=== PATIENT | female | born 1965 | race Caucasian/White ===

== ENCOUNTER 2016-12-17 10:32 | Emergency (ER) | payer MEDICAID ==
[~2016-12-17] VITALS: Ht 152.4 cm; Wt 70.0 kg
[2016-12-17] MEDS ORDERED: SODIUM CHLORIDE 0.9% 1,000 ML IV ONE (11:12)
[2016-12-17] MEDS ORDERED: LORAZEPAM 0.5MG TABLET PO ONE (11:15)
[2016-12-17 11:27] LABS: BASOPHILS % 0.2 % (0.0-2.0); EOSINOPHILS % 0.3 % (0.0-5.0); HEMATOCRIT. 40.1 % (36.0-48.0); LYMPHOCYTES % 25.1 % (20.0-50.0); MEAN CORPUSCULAR HEMOGLOBIN 28.9 pg (28.0-32.0); MEAN CORPUSCULAR VOLUME 82.7 fL (81.0-99.0); MEAN PLATELET VOLUME 9.3 fl (7.4-10.4); MONOCYTES % 4.1 % (2.0-8.0); NEUTROPHILS % 70.3 % (40.0-76.0); PLATELET 223 x1000/uL (130-400); RED BLOOD CELL COUNT 4.85 mill/uL (4.2-5.4); RED CELL DISTRIBUTION WIDTH 12.8 % (11.6-14.6)
[2016-12-17 11:40] LABS: CARBON DIOXIDE 26 mEq/L (21-32); CHLORIDE 102 mEq/L (98-107)
[2016-12-17 11:47] LABS: TROPONIN I < 0.02 ng/mL (0.00-0.04)
[2016-12-17 12:13] VITALS: BP 122/74
== END 2016-12-17 12:47 | disposition home or self-care (01) ==
LOC: ER 11:30
DX: E11.65 Type 2 diabetes mellitus with hyperglycemia (principal); F41.9 Anxiety disorder, unspecified; I10 Essential (primary) hypertension
CPT/HCPCS: 36415; 80053; 82962; 84484; 85025; 93005; 99285; J7030; Z7610

== ENCOUNTER 2016-12-20 16:36 | Emergency (ER) | payer MEDICAID ==
[~2016-12-20] VITALS: Ht 162.6 cm; Wt 72.0 kg
[2016-12-20] MEDS ORDERED: KETOROLAC 60MG/2ML VIAL IM ONE (21:45)
[2016-12-20 23:28] VITALS: BP 122/86
== END 2016-12-20 23:30 | disposition home or self-care (01) ==
LOC: ER 21:45
DX: M25.562 Pain in left knee (principal); E11.9 Type 2 diabetes mellitus without complications; Z90.49 Acquired absence of other specified parts of digestive tract; Z98.890 Other specified postprocedural states; X50.1XXA Overexertion from prolonged static or awkward postures, initial encounter; Y93.89 Activity, other specified; Y92.89 Other specified places as the place of occurrence of the external cause
CPT/HCPCS: 73562; 96372; 99284; J1885; L1830

== ENCOUNTER 2019-08-08 16:41 | Inpatient (IN) | payer MEDICAID, OTHER ==
[~2019-08-08] VITALS: Ht 152.4 cm; Wt 73.9 kg
[2019-08-08] MEDS ORDERED: SODIUM CHLORIDE 0.9% 1,000 ML IV ONE (17:39)
[2019-08-08 18:19] LABS: BG BASE EXCESS 1.5 mmol/L (-2.0-2.0); BG CARBOXYHEMOGLOBIN 0.3 % (0.5-1.5); BG DEOXYHEMOGLOBIN 0.8 % (0.0-5.0); BG FRACTION INSPIRED OXYGEN 40; BG HCO3 ACT 22.6 mmol/L (22.0-26.0); BG METHEMOGLOBIN 0.2 % (0.0-1.5); BG OXYGEN SATURATION 99.2 % (92.0-98.5); BG OXYHEMOGLOBIN 98.7 % (94.0-97.0); BG PCO2 24.6 mmHg (35.0-45.0); BG PH 7.581 (7.350-7.450); BG PO2 209.8 mmHg (75.0-100.0); BG PRESSURE SUPPORT 10; BG SAMPLE SITE RIGHT RADIAL; BG TIDAL VOLUME(mL) 500 mL; BG TOTAL HEMOGLOBIN 9.6 g/dL (12.0-18.0); BG VENT MODE VENT - SIMV; BG VENT RATE 6 set
[2019-08-08 18:20] LABS: HEMATOCRIT. 28.3 % (36.0-48.0); HEMOGLOBIN. 9.3 g/dL (12.0-16.0); MEAN CORPUSCULAR HEMOGLOBIN 27.8 pg (28.0-32.0); MEAN PLATELET VOLUME 9.7 fl (7.4-10.4); PLATELET 62 x1000/uL (130-400); RED BLOOD CELL COUNT 3.33 mill/uL (4.2-5.4); RED CELL DISTRIBUTION WIDTH 21.9 % (11.6-14.6)
[2019-08-08 18:29] LABS: CHLORIDE 100 mEq/L (98-107)
[2019-08-08 18:36] LABS: INR 0.9; PARTIAL THROMBOPLASTIN TIME 31.8 sec (23.4-31.0); PROTHROMBIN TIME 10.1 sec (9.6-11.0)
[2019-08-08 18:50] LABS: NUCLEATED RED BLOOD CELLS 9 /100 WBC; PLATELET ESTIMATE DECREASED
[2019-08-08 20:13] LABS: CLARITY URINE CLOUDY (CLEAR); COLOR URINE DARK YELLOW (YELLOW); KETONES URINE NEGATIVE (NEGATIVE); LEUKOCYTE ESTERASE URINE 1+ (NEGATIVE); NITRITE URINE POSITIVE (NEGATIVE); OCCULT BLOOD URINE NEGATIVE (NEGATIVE); PROTEIN URINE 1+ (NEGATIVE); SPECIFIC GRAVITY URINE 1.019 (1.005-1.030); UROBILINOGEN URINE 0.2 E.U./dL (0.2-1.0)
[2019-08-08] MEDS ORDERED: MORPHINE SULFATE 2 MG/ML CPJ (NOT FOR IM USE) IV ONE (20:15)
[2019-08-08] MEDS ORDERED: IPRATROPIUM/ALBUTEROL 0.5-3(2.5)MG/3ML NEB NEB PRN (20:45)
[2019-08-08] MEDS ORDERED: DOCUSATE SODIUM 100MG CAPSULE PO PRN (20:45)
[2019-08-08] MEDS ORDERED: CLONIDINE 0.1MG TABLET PO PRN (20:45)
[2019-08-08] MEDS ORDERED: DEXTROSE 50% WATER 50ML SYRINGE IV PRN (20:45)
[2019-08-08] MEDS ORDERED: MAGNESIUM/ALUMINUM HYDROXIDE/SIMETHICONE 30ML UDC PO PRN (20:45)
[2019-08-08] MEDS ORDERED: GUAIFENESIN 200MG/10ML SUGAR FREE UDC PO PRN (20:45)
[2019-08-08] MEDS ORDERED: PIPERACILLIN/TAZ 3.375G PREMIX 50 ML IV ONE (20:45)
[2019-08-08] MEDS ORDERED: HYDRALAZINE 20MG/ML VIAL IV PRN (20:45)
[2019-08-08] MEDS ORDERED: ONDANSETRON HCL 4MG/2ML INJ IV PRN (20:45)
[2019-08-08] MEDS ORDERED: LORAZEPAM 2MG/ML CPJ IV PRN (20:45)
[2019-08-08] MEDS ORDERED: VANCOMYCIN 1 G PREMIX 200 ML IV SCH (20:45)
[2019-08-08] MEDS ORDERED: HYDROCODONE/ACETAMINOPHEN 10/325MG TABLET PO PRN (20:45)
[2019-08-08] MEDS: DIPHENHYDRAMINE 50MG/ML VIAL IV PRN (23:18)
[2019-08-08 23:44] LABS: CREATINE KINASE MB FRACTION 5.5 ng/mL (0.5-3.6)
[2019-08-09] MEDS: BLOOD SUGAR DIAGNOSTIC STRIP TEST SCH ×4 (02:45→17:52)
[2019-08-09] MEDS ORDERED: PIPERACILLIN/TAZOBACTAM 3.375 G in DEXT 5% WATER 100 ML IV SCH (06:00)
[2019-08-09] MEDS: SODIUM CHLORIDE 0.9% INJ 3ML FLUSH IVF SCH ×2 (06:00→14:33)
[2019-08-09 07:43] LABS: CHLORIDE 103 mEq/L (98-107); HEMATOCRIT. 26.1 % (36.0-48.0); HEMOGLOBIN. 8.8 g/dL (12.0-16.0); MEAN CORPUSCULAR HEMOGLOBIN 28.6 pg (28.0-32.0); MEAN CORPUSCULAR VOLUME 84.7 fL (81.0-99.0); MEAN PLATELET VOLUME 9.2 fl (7.4-10.4); PLATELET 49 x1000/uL (130-400); RED BLOOD CELL COUNT 3.08 mill/uL (4.2-5.4); RED CELL DISTRIBUTION WIDTH 21.8 % (11.6-14.6)
[2019-08-09 07:52] LABS: CREATINE KINASE 243 IU/L (26-192)
[2019-08-09 07:54] LABS: CREATINE KINASE MB FRACTION 6.1 ng/mL (0.5-3.6)
[2019-08-09] MEDS ORDERED: NA PHOS,M-B/NA PHOS,DI-BA ENEMA 118ML PR PRN (08:00)
[2019-08-09] MEDS: INSULIN LISPRO 100 UNITS/ML SUBCUT SCH ×4 (08:04→21:00)
[2019-08-09 08:37] LABS: NUCLEATED RED BLOOD CELLS 7 /100 WBC
[2019-08-09 08:44] LABS: PLATELET ESTIMATE DECREASED
[2019-08-09] MEDS ORDERED: PIPERACILLIN/TAZ 3.375G PREMIX 50 ML IV NR (14:30)
[2019-08-09] MEDS: ACETAMINOPHEN 325MG TABLET PO PRN (14:43)
[2019-08-09] MEDS: MORPHINE SULFATE 2 MG/ML CPJ (NOT FOR IM USE) IV PRN (17:07)
[2019-08-09 23:30] VITALS: BP 140/86
[2019-08-10] MEDS: IPRATROPIUM/ALBUTEROL 0.5-3(2.5)MG/3ML NEB HHN SCH ×4 (00:30→20:35)
[2019-08-10] MEDS ORDERED: VANCOMYCIN 1250MG in DEXTROSE 5% WATER 250ML IV NR (01:00)
[2019-08-10] MEDS: MORPHINE SULFATE 2 MG/ML CPJ (NOT FOR IM USE) IV PRN (02:36)
[2019-08-10] MEDS: PIPERACILLIN/TAZOBACTAM 3.375 G in DEXT 5% WATER 100 ML IV SCH ×3 (05:44→22:20)
[2019-08-10] MEDS: SODIUM CHLORIDE 0.9% INJ 3ML FLUSH IVF SCH ×2 (05:44→22:05)
[2019-08-10] MEDS: BLOOD SUGAR DIAGNOSTIC STRIP TEST SCH ×4 (06:00→18:17)
[2019-08-10] MEDS: INSULIN LISPRO 100 UNITS/ML SUBCUT SCH ×4 (06:58→22:14)
[2019-08-10] MEDS ORDERED: SPIR50TA5 MT (07:57)
[2019-08-10] MEDS ORDERED: NYST15OI TP (07:57)
[2019-08-10] MEDS ORDERED: MIDO5TAB4 MT (07:57)
[2019-08-10] MEDS ORDERED: ASCO-339 MT (07:57)
[2019-08-10] MEDS ORDERED: POTA20TA82 MT (07:57)
[2019-08-10] MEDS ORDERED: ZINC220T4 MT (07:57)
[2019-08-10 08:06] VITALS: BP 110/63
[2019-08-10 09:55] VITALS: BP 119/70
[2019-08-10] MEDS ORDERED: VANCOMYCIN 1 G PREMIX 200 ML IV SCH (11:00)
[2019-08-10 12:06] VITALS: BP 100/59
[2019-08-10] MEDS: VANCOMYCIN 750 MG PREMIX 150 ML IV SCH (13:15)
[2019-08-10 13:40] VITALS: BP 128/62
[2019-08-10] MEDS: ACETAMINOPHEN 325MG TABLET PO PRN (18:36)
[2019-08-10 20:00] VITALS: BP 134/79
[2019-08-10 22:00] VITALS: BP 108/69
[2019-08-10] MEDS: PANTOT AC/MIN OIL/PET HY-PHL OINT (AQUAPHOR) TOP SCH (22:04)
[2019-08-10] MEDS: NYSTATIN 100,000 UNITS/GM CREAM 15GM TOP SCH (22:05)
[2019-08-11] VITALS (11 sets, daily range): BP systolic 106–143; BP diastolic 65–119
[2019-08-11] MEDS: VANCOMYCIN 750 MG PREMIX 150 ML IV SCH ×2 (01:07→15:44)
[2019-08-11] MEDS: IPRATROPIUM/ALBUTEROL 0.5-3(2.5)MG/3ML NEB HHN SCH ×4 (01:54→20:23)
[2019-08-11] MEDS: DIPHENHYDRAMINE 50MG/ML VIAL IV PRN ×2 (04:09→20:56)
[2019-08-11] MEDS: ACETAMINOPHEN 325MG TABLET PO PRN ×2 (04:09→20:56)
[2019-08-11] MEDS: SODIUM CHLORIDE 0.9% INJ 3ML FLUSH IVF SCH ×3 (06:18→21:03)
[2019-08-11] MEDS: PIPERACILLIN/TAZOBACTAM 3.375 G in DEXT 5% WATER 100 ML IV SCH ×3 (06:18→21:03)
[2019-08-11] MEDS: BLOOD SUGAR DIAGNOSTIC STRIP TEST SCH ×5 (06:18→23:07)
[2019-08-11] MEDS: INSULIN LISPRO 100 UNITS/ML SUBCUT SCH ×4 (06:29→23:06)
[2019-08-11 08:01] LABS: HEMATOCRIT. 26.6 % (36.0-48.0); HEMOGLOBIN. 8.8 g/dL (12.0-16.0); MEAN CORPUSCULAR HEMOGLOBIN 28.8 pg (28.0-32.0); MEAN CORPUSCULAR VOLUME 86.7 fL (81.0-99.0); MEAN PLATELET VOLUME 9.5 fl (7.4-10.4); RED BLOOD CELL COUNT 3.07 mill/uL (4.2-5.4); RED CELL DISTRIBUTION WIDTH 22.2 % (11.6-14.6)
[2019-08-11] MEDS: NYSTATIN 100,000 UNITS/GM CREAM 15GM TOP SCH ×2 (08:53→21:04)
[2019-08-11] MEDS: PANTOT AC/MIN OIL/PET HY-PHL OINT (AQUAPHOR) TOP SCH (08:53)
[2019-08-11] MEDS: MULTIVITAMINS,THER W-MINERALS TABLET PO SCH (08:53)
[2019-08-11 09:10] LABS: CHLORIDE 104 mEq/L (98-107)
[2019-08-11 10:41] LABS: NUCLEATED RED BLOOD CELLS 7 /100 WBC
[2019-08-11 10:42] LABS: PLATELET ESTIMATE MARKEDLY DECREASED
[2019-08-11 10:44] LABS: PLATELET 44 x1000/uL (130-400)
[2019-08-12] VITALS (12 sets, daily range): BP systolic 114–153; BP diastolic 61–86
[2019-08-12] MEDS: VANCOMYCIN 750 MG PREMIX 150 ML IV SCH ×2 (02:03→13:40)
[2019-08-12] MEDS: IPRATROPIUM/ALBUTEROL 0.5-3(2.5)MG/3ML NEB HHN SCH ×4 (03:06→20:12)
[2019-08-12] MEDS: ACETAMINOPHEN 325MG TABLET PO PRN ×2 (05:34→19:48)
[2019-08-12] MEDS: PIPERACILLIN/TAZOBACTAM 3.375 G in DEXT 5% WATER 100 ML IV SCH ×3 (05:35→22:14)
[2019-08-12] MEDS: SODIUM CHLORIDE 0.9% INJ 3ML FLUSH IVF SCH ×3 (05:35→22:14)
[2019-08-12] MEDS: DIPHENHYDRAMINE 50MG/ML VIAL IV PRN (05:35)
[2019-08-12] MEDS: BLOOD SUGAR DIAGNOSTIC STRIP TEST SCH ×3 (05:36→18:03)
[2019-08-12] MEDS: INSULIN LISPRO 100 UNITS/ML SUBCUT SCH ×3 (05:40→18:00)
[2019-08-12 07:28] LABS: HEMATOCRIT. 26.3 % (36.0-48.0); HEMOGLOBIN. 8.5 g/dL (12.0-16.0); MEAN CORPUSCULAR HEMOGLOBIN 28.2 pg (28.0-32.0); MEAN CORPUSCULAR VOLUME 86.8 fL (81.0-99.0); MEAN PLATELET VOLUME 9.4 fl (7.4-10.4); RED BLOOD CELL COUNT 3.03 mill/uL (4.2-5.4); RED CELL DISTRIBUTION WIDTH 22.1 % (11.6-14.6)
[2019-08-12 07:39] LABS: CHLORIDE 103 mEq/L (98-107)
[2019-08-12 07:46] LABS: VANCOMYCIN TROUGH 24.1 ug/mL (5.0-10.0)
[2019-08-12] MEDS: MULTIVITAMINS,THER W-MINERALS TABLET PO SCH (09:35)
[2019-08-12] MEDS: PANTOT AC/MIN OIL/PET HY-PHL OINT (AQUAPHOR) TOP SCH (09:36)
[2019-08-12] MEDS: NYSTATIN 100,000 UNITS/GM CREAM 15GM TOP SCH (09:39)
[2019-08-12 22:56] LABS: NUCLEATED RED BLOOD CELLS 15 /100 WBC; PLATELET ESTIMATE MARKEDLY DECREASED
[2019-08-12 22:57] LABS: PLATELET 37 x1000/uL (130-400)
[2019-08-13] VITALS: BP 139/76
[2019-08-13] MEDS: BLOOD SUGAR DIAGNOSTIC STRIP TEST SCH ×3 (00:54→12:00)
[2019-08-13] MEDS: NYSTATIN 100,000 UNITS/GM CREAM 15GM TOP SCH ×2 (01:35→09:31)
[2019-08-13] MEDS: VANCOMYCIN 750 MG PREMIX 150 ML IV SCH ×2 (01:35→13:06)
[2019-08-13 02:00] VITALS: BP 126/77
[2019-08-13] MEDS: IPRATROPIUM/ALBUTEROL 0.5-3(2.5)MG/3ML NEB HHN SCH ×3 (02:00→13:19)
[2019-08-13 04:00] VITALS: BP 127/98
[2019-08-13 06:00] VITALS: BP 122/75
[2019-08-13] MEDS: INSULIN LISPRO 100 UNITS/ML SUBCUT SCH ×3 (06:00→12:00)
[2019-08-13] MEDS: SODIUM CHLORIDE 0.9% INJ 3ML FLUSH IVF SCH ×2 (06:17→13:06)
[2019-08-13] MEDS: PIPERACILLIN/TAZOBACTAM 3.375 G in DEXT 5% WATER 100 ML IV SCH ×2 (06:17→13:06)
[2019-08-13] MEDS: PANTOT AC/MIN OIL/PET HY-PHL OINT (AQUAPHOR) TOP SCH (09:31)
[2019-08-13] MEDS: MULTIVITAMINS,THER W-MINERALS TABLET PO SCH (09:31)
[2019-08-16] MEDS ORDERED: FURO-151 PO (10:19)
== END 2019-08-13 17:54 | DRG 130 ==
LOC: ER 16:41 → 5EST 19:33 → ENRESERV 08-09 21:36
PROVIDERS: ADMIT Internal Medicine; ATTEND Internal Medicine
PROC: 5A1955Z Respiratory Ventilation, Greater than 96 Consecutive Hours (ICD-10-PCS; principal; 2019-08-08)
DX: J96.20 Acute and chronic respiratory failure, unspecified whether with hypoxia or hypercapnia (principal); J69.0 Pneumonitis due to inhalation of food and vomit; E43 Unspecified severe protein-calorie malnutrition; G82.50 Quadriplegia, unspecified; L89.119 Pressure ulcer of right upper back, unspecified stage; L89.152 Pressure ulcer of sacral region, stage 2; L89.312 Pressure ulcer of right buttock, stage 2; D69.6 Thrombocytopenia, unspecified; L89.323 Pressure ulcer of left buttock, stage 3; R13.10 Dysphagia, unspecified; C50.919 Malignant neoplasm of unspecified site of unspecified female breast; D64.9 Anemia, unspecified; R74.0 Nonspecific elevation of levels of transaminase and lactic acid dehydrogenase [LDH]; K52.9 Noninfective gastroenteritis and colitis, unspecified; K21.9 Gastro-esophageal reflux disease without esophagitis; E11.9 Type 2 diabetes mellitus without complications; R79.89 Other specified abnormal findings of blood chemistry; I10 Essential (primary) hypertension; N39.0 Urinary tract infection, site not specified; Z99.11 Dependence on respirator [ventilator] status; Z85.3 Personal history of malignant neoplasm of breast; Z92.21 Personal history of antineoplastic chemotherapy; Z93.1 Gastrostomy status; Z87.01 Personal history of pneumonia (recurrent); Z68.31 Body mass index [BMI] 31.0-31.9, adult; Z79.899 Other long term (current) drug therapy; Z92.3 Personal history of irradiation; Z93.0 Tracheostomy status
CPT/HCPCS: 36415; 36600; 71045; 80048; 80053; 80202; 81003; 82375; 82550; 82553; 82805; 82962; 83880; 84134; 84484; 85025; 86850; 86900; 93005; 93970; 94002; 94003; 94640; 96365; 96367; 96375; 96376; 99285; J1200; J1815; J2060; J2270; J2543; J3370; J7030; J7060

== ENCOUNTER 2019-11-15 21:23 | Inpatient (IN) | payer MEDICAID ==
[~2019-11-15] VITALS: Ht 167.6 cm; Wt 77.2 kg
[~2019-11-15 21:23] MED LIST: ASCO-339 MT; FURO-151 PO; MIDO5TAB4 MT; NYST15OI TP; POTA20TA82 MT; SPIR50TA5 MT; ZINC220T4 MT
[2019-11-15 23:46] LABS: MEAN CORPUSCULAR HEMOGLOBIN 28.5 pg (28.0-32.0); MEAN CORPUSCULAR VOLUME 87.9 fL (81.0-99.0); MEAN PLATELET VOLUME 7.8 fl (7.4-10.4); PLATELET 110 x1000/uL (130-400); RED BLOOD CELL COUNT 2.35 mill/uL (4.2-5.4); RED CELL DISTRIBUTION WIDTH 20.3 % (11.6-14.6)
[2019-11-15 23:50] LABS: CHLORIDE 106 mEq/L (98-107)
[2019-11-15 23:52] LABS: HEMATOCRIT. 20.7 % (36.0-48.0); HEMOGLOBIN. 6.7 g/dL (12.0-16.0)
[2019-11-16 00:29] LABS: PLATELET ESTIMATE SLIGHTLY DECREASED
[2019-11-16] MEDS ORDERED: FUROSEMIDE 40MG/4ML VIAL IVP ONE (00:45)
[2019-11-16] MEDS ORDERED: CEFTRIAXONE 1 G PREMIX 50 ML IV SCH ×3 (02:00→11:00)
[2019-11-16 02:08] LABS: CLARITY URINE CLEAR (CLEAR); COLOR URINE YELLOW (YELLOW); KETONES URINE NEGATIVE (NEGATIVE); LEUKOCYTE ESTERASE URINE TRACE (NEGATIVE); NITRITE URINE NEGATIVE (NEGATIVE); OCCULT BLOOD URINE NEGATIVE (NEGATIVE); PH URINE 6.5 (4.5-8.0); PROTEIN URINE NEGATIVE (NEGATIVE); SPECIFIC GRAVITY URINE 1.007 (1.005-1.030); UROBILINOGEN URINE 0.2 E.U./dL (0.2-1.0)
[2019-11-16] MEDS ORDERED: ALBUMIN HUMAN 12.5GM/50ML (25%) IV SCH (03:00)
[2019-11-16] MEDS ORDERED: CLONIDINE 0.1MG TABLET PO PRN (10:15)
[2019-11-16] MEDS ORDERED: ONDANSETRON HCL 4MG/2ML INJ IV PRN (10:15)
[2019-11-16] MEDS ORDERED: AZITHROMYCIN 500 MG in DEXT 5% WATER 250 ML IV SCH ×2 (10:15→10:45)
[2019-11-16 11:20] LABS: HEMATOCRIT 28.1 % (36.0-48.0); HEMOGLOBIN 9.2 g/dL (12.0-16.0); MEAN CORPUSCULAR HEMOGLOBIN 28.9 pg (28.0-32.0); MEAN CORPUSCULAR VOLUME 88.4 fL (81.0-99.0); PLATELET 113 x1000/uL (130-400); RED BLOOD CELL COUNT 3.18 mill/uL (4.2-5.4); RED CELL DISTRIBUTION WIDTH 18.1 % (11.6-14.6)
[2019-11-16 11:21] LABS: BG BASE EXCESS 8.8 mmol/L (-2.0-2.0); BG CARBOXYHEMOGLOBIN 0.3 % (0.5-1.5); BG DEOXYHEMOGLOBIN 6.3 % (0.0-5.0); BG FRACTION INSPIRED OXYGEN 35; BG HCO3 ACT 35.4 mmol/L (22.0-26.0); BG METHEMOGLOBIN 0.4 % (0.0-1.5); BG OXYGEN SATURATION 93.7 % (92.0-98.5); BG PCO2 61.9 mmHg (35.0-45.0); BG PH 7.375 (7.350-7.450); BG PO2 75.6 mmHg (75.0-100.0); BG PRESSURE SUPPORT 10; BG SAMPLE SITE RIGHT RADIAL; BG TOTAL HEMOGLOBIN 9.2 g/dL (12.0-18.0); BG VENT MODE VENT - CPAP
[2019-11-16 11:32] LABS: PHOSPHORUS 2.6 mg/dL (2.5-4.9)
[2019-11-16] MEDS: SODIUM CHLORIDE 0.9% 1,000 ML IV SCH (11:40)
[2019-11-16] MEDS ORDERED: VANCOMYCIN 1500MG in DEXTROSE 5% WATER 250ML IV SCH (17:30)
[2019-11-17 00:02] LABS: CREATINE KINASE MB FRACTION 2.2 ng/mL (0.5-3.6)
[2019-11-17 03:53] LABS: HEMATOCRIT. 24.7 % (36.0-48.0); HEMOGLOBIN. 8.3 g/dL (12.0-16.0); MEAN CORPUSCULAR HEMOGLOBIN 29.2 pg (28.0-32.0); MEAN CORPUSCULAR VOLUME 86.6 fL (81.0-99.0); PLATELET 95 x1000/uL (130-400); RED BLOOD CELL COUNT 2.85 mill/uL (4.2-5.4)
[2019-11-17 03:56] LABS: CHLORIDE 105 mEq/L (98-107)
[2019-11-17 04:02] LABS: HDL CHOLESTEROL 21 mg/dL (40-59); LDL CHOLESTEROL 70 mg/dL (5-100)
[2019-11-17] MEDS: VANCOMYCIN 1 G PREMIX 200 ML IV SCH ×2 (06:00→18:31)
[2019-11-17] MEDS ORDERED: OMEPRAZOLE 20MG CAPSULE EXTENDED RELEASE PO SCH (06:30)
[2019-11-17 08:32] LABS: BG BASE EXCESS 7.1 mmol/L (-2.0-2.0); BG CARBOXYHEMOGLOBIN 0.6 % (0.5-1.5); BG DEOXYHEMOGLOBIN 3.3 % (0.0-5.0); BG FRACTION INSPIRED OXYGEN 35; BG HCO3 ACT 32.3 mmol/L (22.0-26.0); BG METHEMOGLOBIN 0.3 % (0.0-1.5); BG OXYGEN SATURATION 96.7 % (92.0-98.5); BG OXYHEMOGLOBIN 95.8 % (94.0-97.0); BG PCO2 49.9 mmHg (35.0-45.0); BG PH 7.429 (7.350-7.450); BG PO2 88.8 mmHg (75.0-100.0); BG PRESSURE SUPPORT 10; BG SAMPLE SITE RIGHT RADIAL; BG TIDAL VOLUME(mL) 550 mL; BG TOTAL HEMOGLOBIN 8.4 g/dL (12.0-18.0); BG VENT MODE VENT - SIMV; BG VENT RATE 6 set
[2019-11-17] MEDS: INSULIN LISPRO 100 UNITS/ML SUBCUT SCH ×4 (09:00→21:00)
[2019-11-17] MEDS ORDERED: DEXTROSE 50% WATER 50ML SYRINGE IV PRN (09:00)
[2019-11-17] MEDS: LANSOPRAZOLE 30MG DR CAPSULE GT SCH (09:15)
[2019-11-17] MEDS: CEFTRIAXONE 1 G PREMIX 50 ML IV SCH (09:33)
[2019-11-17] MEDS: BLOOD SUGAR DIAGNOSTIC STRIP TEST SCH ×4 (09:41→21:00)
[2019-11-17] MEDS: AZITHROMYCIN 500 MG in DEXT 5% WATER 250 ML IV SCH (09:48)
[2019-11-17 13:18] LABS: NUCLEATED RED BLOOD CELLS 1 /100 WBC
[2019-11-17 13:19] LABS: PLATELET ESTIMATE SLIGHTLY DECREASED
[2019-11-17] MEDS: SODIUM CHLORIDE 0.9% 1,000 ML IV SCH (14:38)
[2019-11-17] MEDS ORDERED: POTASSIUM CHLORIDE 20MEQ/PACKET PO NR (15:45)
[2019-11-17 23:20] VITALS: BP 168/99
[2019-11-17 23:45] VITALS: BP 164/106
[2019-11-18] VITALS (41 sets, daily range): BP systolic 108–165; BP diastolic 68–100
[2019-11-18] MEDS: SODIUM CHLORIDE 0.9% 1,000 ML IV SCH ×2 (01:12→12:01)
[2019-11-18] MEDS ORDERED: INSU100V34 SQ (03:39)
[2019-11-18] MEDS ORDERED: DIPH25TA24 GT (03:39)
[2019-11-18] MEDS ORDERED: MIDO5TAB4 GT (03:39)
[2019-11-18] MEDS ORDERED: MULT-230 GT (03:39)
[2019-11-18] MEDS ORDERED: FE300LUD GT (03:39)
[2019-11-18] MEDS ORDERED: [UNRECOGNIZED DRUG - OTHER] GT (03:39)
[2019-11-18] MEDS ORDERED: EPOE200014 SUBCUT (03:39)
[2019-11-18] MEDS ORDERED: CLON-457 GT (03:39)
[2019-11-18] MEDS ORDERED: SIME125C GT (03:39)
[2019-11-18] MEDS ORDERED: DOCU100T GT (03:39)
[2019-11-18] MEDS ORDERED: OMEP20CA14 GT (03:39)
[2019-11-18] MEDS ORDERED: LOPE2TAB24 GT (03:39)
[2019-11-18] MEDS ORDERED: NITR0.4T49 SL (03:39)
[2019-11-18] MEDS ORDERED: AMIN30LI2 GT (03:39)
[2019-11-18] MEDS ORDERED: ONDA4TAB50 GT (03:39)
[2019-11-18] MEDS: VANCOMYCIN 1 G PREMIX 200 ML IV SCH (06:00)
[2019-11-18 06:05] LABS: HEMATOCRIT. 24.4 % (36.0-48.0); HEMOGLOBIN. 8.2 g/dL (12.0-16.0); MEAN CORPUSCULAR HEMOGLOBIN 29.3 pg (28.0-32.0); MEAN CORPUSCULAR VOLUME 87.6 fL (81.0-99.0); MEAN PLATELET VOLUME 8.3 fl (7.4-10.4); PLATELET 73 x1000/uL (130-400); RED BLOOD CELL COUNT 2.79 mill/uL (4.2-5.4); RED CELL DISTRIBUTION WIDTH 18.7 % (11.6-14.6)
[2019-11-18 06:11] LABS: CHLORIDE 103 mEq/L (98-107)
[2019-11-18 06:19] LABS: VANCOMYCIN TROUGH 24.6 ug/mL (5.0-10.0)
[2019-11-18 06:20] LABS: T4 FREE 0.84 ng/dL (0.76-1.46)
[2019-11-18] MEDS ORDERED: POTASSIUM CHLORIDE 20MEQ/PACKET PO NR (07:30)
[2019-11-18] MEDS: BLOOD SUGAR DIAGNOSTIC STRIP TEST SCH (07:50)
[2019-11-18] MEDS: INSULIN LISPRO 100 UNITS/ML SUBCUT SCH (08:20)
[2019-11-18 08:21] LABS: NUCLEATED RED BLOOD CELLS 2 /100 WBC; PLATELET ESTIMATE DECREASED
[2019-11-18] MEDS ORDERED: LIDOCAINE HCL 1% 20ML VIAL (Pyxis) INJ ONE (08:27)
[2019-11-18] MEDS: LANSOPRAZOLE 30MG DR CAPSULE GT SCH (09:43)
[2019-11-18] MEDS: CEFTRIAXONE 1 G PREMIX 50 ML IV SCH (09:43)
[2019-11-18 09:47] LABS: BG BASE EXCESS 5.9 mmol/L (-2.0-2.0); BG CARBOXYHEMOGLOBIN 0.9 % (0.5-1.5); BG DEOXYHEMOGLOBIN 16.5 % (0.0-5.0); BG FRACTION INSPIRED OXYGEN 35; BG HCO3 ACT 31.2 mmol/L (22.0-26.0); BG METHEMOGLOBIN 0.3 % (0.0-1.5); BG OXYGEN SATURATION 83.3 % (92.0-98.5); BG OXYHEMOGLOBIN 82.3 % (94.0-97.0); BG PCO2 49.7 mmHg (35.0-45.0); BG PH 7.416 (7.350-7.450); BG PO2 49.1 mmHg (75.0-100.0); BG PRESSURE SUPPORT 10; BG SAMPLE SITE RIGHT RADIAL; BG TIDAL VOLUME(mL) 550 mL; BG TOTAL HEMOGLOBIN 8.5 g/dL (12.0-18.0); BG VENT MODE VENT - SIMV; BG VENT RATE 6 set
[2019-11-18] MEDS: MORPHINE SULFATE 2 MG/ML CPJ (NOT FOR IM USE) IV PRN ×2 (09:47→22:00)
[2019-11-18] MEDS: AZITHROMYCIN 500 MG in DEXT 5% WATER 250 ML IV SCH (10:27)
[2019-11-18 10:58] LABS: BG BASE EXCESS 7.1 mmol/L (-2.0-2.0); BG CARBOXYHEMOGLOBIN 0.5 % (0.5-1.5); BG DEOXYHEMOGLOBIN 1.1 % (0.0-5.0); BG FRACTION INSPIRED OXYGEN 50; BG HCO3 ACT 33.8 mmol/L (22.0-26.0); BG METHEMOGLOBIN 0.4 % (0.0-1.5); BG OXYGEN SATURATION 98.9 % (92.0-98.5); BG PCO2 61.3 mmHg (35.0-45.0); BG PH 7.359 (7.350-7.450); BG PO2 173.3 mmHg (75.0-100.0); BG PRESSURE SUPPORT 10; BG SAMPLE SITE RIGHT RADIAL; BG TIDAL VOLUME(mL) 550 mL; BG VENT MODE VENT - SIMV; BG VENT RATE 6 set
[2019-11-18] MEDS ORDERED: INSULIN LISPRO 100 UNITS/ML SUBCUT SCH (12:00)
[2019-11-18] MEDS ORDERED: BLOOD SUGAR DIAGNOSTIC STRIP TEST SCH (12:00)
[2019-11-18] MEDS: SUCRALFATE 1 G/10 ML UDC PEG SCH (17:20)
[2019-11-18] MEDS: VANCOMYCIN 750 MG PREMIX 150 ML IV SCH (21:59)
[2019-11-19] VITALS (12 sets, daily range): BP systolic 107–164; BP diastolic 60–96
[2019-11-19] MEDS: SODIUM CHLORIDE 0.9% 1,000 ML IV SCH (00:16)
[2019-11-19] MEDS: SUCRALFATE 1 G/10 ML UDC PEG SCH ×4 (00:16→17:36)
[2019-11-19] MEDS: MORPHINE SULFATE 2 MG/ML CPJ (NOT FOR IM USE) IV PRN ×4 (06:11→21:29)
[2019-11-19 06:27] LABS: HEMATOCRIT. 22.6 % (36.0-48.0); HEMOGLOBIN. 7.7 g/dL (12.0-16.0); MEAN CORPUSCULAR HEMOGLOBIN 29.4 pg (28.0-32.0); MEAN CORPUSCULAR VOLUME 86.2 fL (81.0-99.0); MEAN PLATELET VOLUME 8.4 fl (7.4-10.4); PLATELET 67 x1000/uL (130-400); RED BLOOD CELL COUNT 2.63 mill/uL (4.2-5.4); RED CELL DISTRIBUTION WIDTH 18.5 % (11.6-14.6)
[2019-11-19 07:05] LABS: CHLORIDE 103 mEq/L (98-107)
[2019-11-19] MEDS: ACETAMINOPHEN 325MG TABLET PO PRN ×3 (07:45→18:57)
[2019-11-19] MEDS: VANCOMYCIN 750 MG PREMIX 150 ML IV SCH ×2 (09:25→22:54)
[2019-11-19] MEDS: CEFTRIAXONE 1 G PREMIX 50 ML IV SCH (09:26)
[2019-11-19] MEDS: PANTOPRAZOLE SODIUM 40 MG/VIAL IV SCH (09:33)
[2019-11-19 10:07] LABS: BG CARBOXYHEMOGLOBIN 0.8 % (0.5-1.5); BG DEOXYHEMOGLOBIN 2.4 % (0.0-5.0); BG FRACTION INSPIRED OXYGEN 35; BG HCO3 ACT 31.7 mmol/L (22.0-26.0); BG METHEMOGLOBIN 0.3 % (0.0-1.5); BG OXYGEN SATURATION 97.6 % (92.0-98.5); BG OXYHEMOGLOBIN 96.5 % (94.0-97.0); BG PCO2 46.5 mmHg (35.0-45.0); BG PH 7.451 (7.350-7.450); BG PO2 100.7 mmHg (75.0-100.0); BG PRESSURE SUPPORT 10; BG SAMPLE SITE RIGHT RADIAL; BG TIDAL VOLUME(mL) 550 mL; BG TOTAL HEMOGLOBIN 8.3 g/dL (12.0-18.0); BG VENT MODE VENT - SIMV; BG VENT RATE 6 set
[2019-11-19] MEDS: AZITHROMYCIN 500 MG in DEXT 5% WATER 250 ML IV SCH (11:06)
[2019-11-19] MEDS ORDERED: POTASSIUM CHLORIDE 20MEQ/PACKET PO SCH (12:45)
[2019-11-19 14:45] LABS: NUCLEATED RED BLOOD CELLS 5 /100 WBC; PLATELET ESTIMATE DECREASED
[2019-11-19] MEDS ORDERED: IPRATROPIUM/ALBUTEROL 0.5-3(2.5)MG/3ML NEB HHN PRN (17:15)
[2019-11-19] MEDS: MEROPENEM 500 MG in SODIUM CHLORIDE 0.9% 50 ML IV SCH (21:22)
[2019-11-20] VITALS (12 sets, daily range): BP systolic 132–157; BP diastolic 75–89
[2019-11-20] MEDS: SUCRALFATE 1 G/10 ML UDC PEG SCH ×4 (00:30→17:16)
[2019-11-20] MEDS: MEROPENEM 500 MG in SODIUM CHLORIDE 0.9% 50 ML IV SCH ×3 (05:29→21:53)
[2019-11-20] MEDS: MORPHINE SULFATE 2 MG/ML CPJ (NOT FOR IM USE) IV PRN ×3 (05:29→18:44)
[2019-11-20 06:01] LABS: HEMATOCRIT. 23.8 % (36.0-48.0); MEAN CORPUSCULAR HEMOGLOBIN 29.3 pg (28.0-32.0); MEAN CORPUSCULAR VOLUME 87.1 fL (81.0-99.0); MEAN PLATELET VOLUME 8.9 fl (7.4-10.4); PLATELET 62 x1000/uL (130-400); RED BLOOD CELL COUNT 2.73 mill/uL (4.2-5.4); RED CELL DISTRIBUTION WIDTH 19.2 % (11.6-14.6)
[2019-11-20 06:05] LABS: CHLORIDE 102 mEq/L (98-107)
[2019-11-20] MEDS: VANCOMYCIN 750 MG PREMIX 150 ML IV SCH (08:54)
[2019-11-20] MEDS: PANTOPRAZOLE SODIUM 40 MG/VIAL IV SCH (08:54)
[2019-11-20] MEDS: AZITHROMYCIN 500 MG in DEXT 5% WATER 250 ML IV SCH (08:54)
[2019-11-20] MEDS: ACETAMINOPHEN 325MG TABLET PO PRN ×2 (08:55→13:33)
[2019-11-20 14:00] LABS: PLATELET ESTIMATE DECREASED
[2019-11-20] MEDS ORDERED: MIDAZOLAM HCL 5 MG/5 ML VIAL ONE (16:18)
[2019-11-20] MEDS ORDERED: FENTANYL CITRATE/PF 50MCG/ML 2ML VIAL ONE (16:18)
[2019-11-20] MEDS ORDERED: MIDAZOLAM HCL 5 MG/5 ML VIAL IV NR (16:30)
[2019-11-20] MEDS: DIPHENHYDRAMINE 50MG/ML VIAL IV PRN (18:40)
[2019-11-21] VITALS (12 sets, daily range): BP systolic 114–150; BP diastolic 62–79
[2019-11-21] MEDS: SUCRALFATE 1 G/10 ML UDC PEG SCH ×5 (01:06→23:30)
[2019-11-21] MEDS: VANCOMYCIN 1 G PREMIX 200 ML IV SCH ×2 (01:07→17:28)
[2019-11-21] MEDS: MEROPENEM 500 MG in SODIUM CHLORIDE 0.9% 50 ML IV SCH ×3 (04:56→22:37)
[2019-11-21 07:22] LABS: CHLORIDE 102 mEq/L (98-107)
[2019-11-21 07:27] LABS: HEMATOCRIT. 22.3 % (36.0-48.0); HEMOGLOBIN. 7.3 g/dL (12.0-16.0); MEAN CORPUSCULAR HEMOGLOBIN 28.9 pg (28.0-32.0); MEAN PLATELET VOLUME 9.1 fl (7.4-10.4); PLATELET 57 x1000/uL (130-400); RED BLOOD CELL COUNT 2.53 mill/uL (4.2-5.4); RED CELL DISTRIBUTION WIDTH 19.3 % (11.6-14.6)
[2019-11-21] MEDS: PANTOPRAZOLE SODIUM 40 MG/VIAL IV SCH (09:26)
[2019-11-21 13:06] LABS: NUCLEATED RED BLOOD CELLS 1 /100 WBC; PLATELET ESTIMATE DECREASED
[2019-11-22] VITALS (19 sets, daily range): BP systolic 112–144; BP diastolic 59–83
[2019-11-22] MEDS: SUCRALFATE 1 G/10 ML UDC PEG SCH ×4 (05:27→23:58)
[2019-11-22] MEDS: MEROPENEM 500 MG in SODIUM CHLORIDE 0.9% 50 ML IV SCH ×3 (05:27→20:19)
[2019-11-22 06:51] LABS: CHLORIDE 103 mEq/L (98-107)
[2019-11-22 07:04] LABS: HEMATOCRIT. 26.1 % (36.0-48.0); HEMOGLOBIN. 8.8 g/dL (12.0-16.0); MEAN CORPUSCULAR HEMOGLOBIN 30.5 pg (28.0-32.0); MEAN CORPUSCULAR VOLUME 90.1 fL (81.0-99.0); MEAN PLATELET VOLUME 9.3 fl (7.4-10.4); PLATELET 71 x1000/uL (130-400); RED CELL DISTRIBUTION WIDTH 18.6 % (11.6-14.6)
[2019-11-22] MEDS: PANTOPRAZOLE SODIUM 40 MG/VIAL IV SCH (08:23)
[2019-11-22 10:06] LABS: NUCLEATED RED BLOOD CELLS 2 /100 WBC; PLATELET ESTIMATE DECREASED
[2019-11-22] MEDS: VANCOMYCIN 1 G PREMIX 200 ML IV SCH (12:11)
[2019-11-22] MEDS: LOPERAMIDE HCL 2MG CAPSULE PO PRN (14:07)
[2019-11-23] VITALS (12 sets, daily range): BP systolic 116–136; BP diastolic 62–84
[2019-11-23] MEDS: SUCRALFATE 1 G/10 ML UDC PEG SCH ×4 (05:42→23:27)
[2019-11-23] MEDS: MEROPENEM 500 MG in SODIUM CHLORIDE 0.9% 50 ML IV SCH ×3 (05:42→21:27)
[2019-11-23 05:44] LABS: CHLORIDE 104 mEq/L (98-107)
[2019-11-23 06:10] LABS: EOSINOPHILS % 4.2 % (0.0-5.0); HEMATOCRIT. 23.3 % (36.0-48.0); HEMOGLOBIN. 7.9 g/dL (12.0-16.0); LYMPHOCYTES % 9.1 % (20.0-50.0); MEAN CORPUSCULAR HEMOGLOBIN 30.6 pg (28.0-32.0); MONOCYTES % 9.8 % (2.0-8.0); NEUTROPHILS % 75.9 % (40.0-76.0); PLATELET 79 x1000/uL (130-400); RED BLOOD CELL COUNT 2.59 mill/uL (4.2-5.4); RED CELL DISTRIBUTION WIDTH 18.4 % (11.6-14.6)
[2019-11-23] MEDS: VANCOMYCIN 1 G PREMIX 200 ML IV SCH (06:33)
[2019-11-23] MEDS: PANTOPRAZOLE SODIUM 40 MG/VIAL IV SCH (08:10)
[2019-11-23] MEDS: VANCOMYCIN 750 MG PREMIX 150 ML IV SCH ×2 (12:32→23:27)
[2019-11-23] MEDS ORDERED: DIPHENOXYLATE/ATROPINE 2.5/0.025MG TABLET PO PRN (14:45)
[2019-11-24] VITALS (19 sets, daily range): BP systolic 110–135; BP diastolic 62–77
[2019-11-24] MEDS: SUCRALFATE 1 G/10 ML UDC PEG SCH ×4 (05:03→23:30)
[2019-11-24] MEDS: MEROPENEM 500 MG in SODIUM CHLORIDE 0.9% 50 ML IV SCH ×3 (05:03→22:51)
[2019-11-24 06:35] LABS: HEMATOCRIT. 21.2 % (36.0-48.0); HEMOGLOBIN. 7.2 g/dL (12.0-16.0); MEAN CORPUSCULAR HEMOGLOBIN 30.6 pg (28.0-32.0); MEAN CORPUSCULAR VOLUME 91.1 fL (81.0-99.0); MEAN PLATELET VOLUME 8.9 fl (7.4-10.4); PLATELET 78 x1000/uL (130-400); RED BLOOD CELL COUNT 2.33 mill/uL (4.2-5.4); RED CELL DISTRIBUTION WIDTH 18.4 % (11.6-14.6)
[2019-11-24 06:39] LABS: CHLORIDE 101 mEq/L (98-107)
[2019-11-24 06:52] LABS: PHOSPHORUS 2.7 mg/dL (2.5-4.9)
[2019-11-24] MEDS: PANTOPRAZOLE SODIUM 40 MG/VIAL IV SCH (08:01)
[2019-11-24] MEDS: DIPHENHYDRAMINE 50MG/ML VIAL IV PRN ×2 (09:07→22:56)
[2019-11-24 11:54] LABS: PLATELET ESTIMATE DECREASED
[2019-11-24] MEDS: VANCOMYCIN 750 MG PREMIX 150 ML IV SCH ×2 (16:28→23:31)
[2019-11-24 17:12] LABS: HEMATOCRIT 25.8 % (36.0-48.0); HEMOGLOBIN 8.8 g/dL (12.0-16.0)
[2019-11-24] MEDS: ACETAMINOPHEN 325MG TABLET PO PRN (20:17)
[2019-11-25] VITALS (12 sets, daily range): BP systolic 106–138; BP diastolic 49–73
[2019-11-25] MEDS: SUCRALFATE 1 G/10 ML UDC PEG SCH ×4 (04:57→23:33)
[2019-11-25 06:46] LABS: EOSINOPHILS % 4.2 % (0.0-5.0); HEMATOCRIT. 25.6 % (36.0-48.0); HEMOGLOBIN. 8.6 g/dL (12.0-16.0); LYMPHOCYTES % 13.3 % (20.0-50.0); MEAN CORPUSCULAR HEMOGLOBIN 29.5 pg (28.0-32.0); MEAN PLATELET VOLUME 8.4 fl (7.4-10.4); NEUTROPHILS % 68.5 % (40.0-76.0); PLATELET 94 x1000/uL (130-400); RED BLOOD CELL COUNT 2.91 mill/uL (4.2-5.4); RED CELL DISTRIBUTION WIDTH 20.1 % (11.6-14.6)
[2019-11-25 06:53] LABS: CHLORIDE 107 mEq/L (98-107)
[2019-11-25] MEDS: PANTOPRAZOLE SODIUM 40 MG/VIAL IV SCH (08:44)
[2019-11-25] MEDS: NYSTATIN POWDER 15GM TOP SCH ×2 (17:38→21:42)
[2019-11-25] MEDS: VANCOMYCIN 1 G PREMIX 200 ML IV SCH (21:42)
[2019-11-26] VITALS (12 sets, daily range): BP systolic 106–135; BP diastolic 55–82
[2019-11-26] MEDS: SUCRALFATE 1 G/10 ML UDC PEG SCH ×3 (05:48→18:30)
[2019-11-26 06:59] LABS: BASOPHILS % 1.1 % (0.0-2.0); EOSINOPHILS % 4.7 % (0.0-5.0); HEMATOCRIT. 25.7 % (36.0-48.0); HEMOGLOBIN. 8.7 g/dL (12.0-16.0); LYMPHOCYTES % 12.9 % (20.0-50.0); MEAN CORPUSCULAR HEMOGLOBIN 30.2 pg (28.0-32.0); MEAN CORPUSCULAR VOLUME 89.7 fL (81.0-99.0); MEAN PLATELET VOLUME 8.4 fl (7.4-10.4); MONOCYTES % 14.4 % (2.0-8.0); NEUTROPHILS % 66.9 % (40.0-76.0); PLATELET 121 x1000/uL (130-400); RED BLOOD CELL COUNT 2.87 mill/uL (4.2-5.4); RED CELL DISTRIBUTION WIDTH 20.6 % (11.6-14.6)
[2019-11-26 08:06] LABS: CHLORIDE 107 mEq/L (98-107)
[2019-11-26] MEDS: NYSTATIN POWDER 15GM TOP SCH ×3 (09:09→16:10)
[2019-11-26] MEDS: PANTOPRAZOLE SODIUM 40 MG/VIAL IV SCH (09:09)
[2019-11-26] MEDS ORDERED: PANT40TA4 MT (12:16)
[2019-11-26] MEDS ORDERED: SUCR1ORA15 PEG (12:16)
[2019-11-26] MEDS: VANCOMYCIN 1 G PREMIX 200 ML IV SCH (15:31)
[2019-11-26] MEDS: DIPHENHYDRAMINE 50MG/ML VIAL IV PRN (16:10)
[2019-11-27] VITALS (12 sets, daily range): BP systolic 109–144; BP diastolic 61–81
[2019-11-27] MEDS: SUCRALFATE 1 G/10 ML UDC PEG SCH ×4 (00:31→18:20)
[2019-11-27] MEDS: DIPHENHYDRAMINE 50MG/ML VIAL IV PRN (05:29)
[2019-11-27] MEDS: PANTOPRAZOLE SODIUM 40 MG/VIAL IV SCH (09:22)
[2019-11-27] MEDS: NYSTATIN POWDER 15GM TOP SCH ×3 (09:22→17:30)
[2019-11-27] MEDS: LOPERAMIDE HCL 2MG CAPSULE PO PRN (15:09)
== END 2019-11-27 21:47 | DRG 720 ==
LOC: ER 21:23 → MICUSO 11-16 01:47 → ENRESERV 11-16 01:55 → CANRESERV 11-16 01:55 → EDBEDREQSVC 11-16 10:19 → EDBEDREQ 11-16 10:19 → ENRESERV 11-17 22:05 → EDBEDREQ 11-17 22:33 → CVICU 11-17 23:20 → 5EST 11-18 19:30
PROVIDERS: ADMIT Internal Medicine; ATTEND Internal Medicine
PROC: 5A1955Z Respiratory Ventilation, Greater than 96 Consecutive Hours (ICD-10-PCS; 2019-11-15)
PROC: 30233N1 Transfusion of Nonautologous Red Blood Cells into Peripheral Vein, Percutaneous Approach (ICD-10-PCS; principal; 2019-11-16)
PROC: 02HV33Z Insertion of Infusion Device into Superior Vena Cava, Percutaneous Approach (ICD-10-PCS; 2019-11-18)
PROC: B548ZZA Ultrasonography of Superior Vena Cava, Guidance (ICD-10-PCS; 2019-11-18)
PROC: 0DB68ZX Excision of Stomach, Via Natural or Artificial Opening Endoscopic, Diagnostic (ICD-10-PCS; 2019-11-20)
DX: A41.9 Sepsis, unspecified organism (principal); J96.21 Acute and chronic respiratory failure with hypoxia; E43 Unspecified severe protein-calorie malnutrition; Z99.11 Dependence on respirator [ventilator] status; G82.50 Quadriplegia, unspecified; Z93.0 Tracheostomy status; E46 Unspecified protein-calorie malnutrition; J18.9 Pneumonia, unspecified organism; L51.1 Stevens-Johnson syndrome; L89.153 Pressure ulcer of sacral region, stage 3; J96.22 Acute and chronic respiratory failure with hypercapnia; K76.0 Fatty (change of) liver, not elsewhere classified; R13.10 Dysphagia, unspecified; R65.20 Severe sepsis without septic shock; D64.9 Anemia, unspecified; R22.1 Localized swelling, mass and lump, neck; E11.65 Type 2 diabetes mellitus with hyperglycemia; K21.9 Gastro-esophageal reflux disease without esophagitis; B37.9 Candidiasis, unspecified; I10 Essential (primary) hypertension; K52.9 Noninfective gastroenteritis and colitis, unspecified; L89.019 Pressure ulcer of right elbow, unspecified stage; C50.919 Malignant neoplasm of unspecified site of unspecified female breast; K29.60 Other gastritis without bleeding; K25.9 Gastric ulcer, unspecified as acute or chronic, without hemorrhage or perforation; L03.90 Cellulitis, unspecified; B96.20 Unspecified Escherichia coli [E. coli] as the cause of diseases classified elsewhere; B96.1 Klebsiella pneumoniae [K. pneumoniae] as the cause of diseases classified elsewhere; E03.9 Hypothyroidism, unspecified; D69.6 Thrombocytopenia, unspecified; E66.9 Obesity, unspecified; K29.80 Duodenitis without bleeding; K44.9 Diaphragmatic hernia without obstruction or gangrene; F41.9 Anxiety disorder, unspecified; Z92.21 Personal history of antineoplastic chemotherapy; Z93.1 Gastrostomy status; Z03.818 Encounter for observation for suspected exposure to other biological agents ruled out; Z74.01 Bed confinement status; Z92.3 Personal history of irradiation; Z68.27 Body mass index [BMI] 27.0-27.9, adult
CPT/HCPCS: 36415; 36600; 71045; 76536; 76937; 80048; 80053; 80061; 80076; 80202; 81003; 82270; 82375; 82550; 82553; 82728; 82805; 82962; 83036; 83540; 83550; 83605; 83615; 83735; 83880; 84100; 84145; 84439; 84443; 84481; 84484; 85014; 85018; 85025; 85027; 85379; 85651; 86141; 86850; 86900; 86920; 87493; 88305; 88312; 88313; 93005; 93970; 93971; 94002; 94003; 99291; C1725; C9113; J0456; J0696; J1200; J1940; J2185; J2250; J2270; J3010; J3370; J3490; J7060; P9016; P9047; U0003-CS

== ENCOUNTER 2019-12-13 11:43 | Inpatient (IN) | payer MEDICAID ==
[~2019-12-13] VITALS: Ht 172.7 cm; Wt 66.7 kg
[~2019-12-13 11:43] MED LIST changes: +AMIN30LI2 GT; -ASCO-339 MT; +CLON-457 GT; +DIPH25TA24 GT; +DOCU100T GT; +EPOE200014 SUBCUT; -FURO-151 PO; +INSU100V34 SQ; +LOPE2TAB24 GT; -MIDO5TAB4 MT; +MULT-230 GT; +NITR0.4T49 SL; -NYST15OI TP; +ONDA4TAB50 GT; +PANT40TA4 MT; -POTA20TA82 MT; +SIME125C GT; -SPIR50TA5 MT; +SUCR1ORA15 PEG; -ZINC220T4 MT; +[UNRECOGNIZED DRUG - OTHER] GT
[2019-12-13 12:39] LABS: CHLORIDE 108 mEq/L (98-107)
[2019-12-13 12:42] LABS: INR 1.1; PROTHROMBIN TIME 11.9 sec (9.6-11.0)
[2019-12-13] MEDS ORDERED: LIDOCAINE HCL 1% 20ML VIAL (Pyxis) INJ ONE (13:51)
[2019-12-13 14:17] LABS: BASOPHILS % 0.8 % (0.0-2.0); EOSINOPHILS % 10.7 % (0.0-5.0); HEMATOCRIT. 24.1 % (36.0-48.0); LYMPHOCYTES % 15.2 % (20.0-50.0); MEAN CORPUSCULAR HEMOGLOBIN 29.5 pg (28.0-32.0); MEAN CORPUSCULAR VOLUME 89.3 fL (81.0-99.0); MEAN PLATELET VOLUME 7.3 fl (7.4-10.4); MONOCYTES % 10.1 % (2.0-8.0); NEUTROPHILS % 63.2 % (40.0-76.0); PLATELET 209 x1000/uL (130-400); RED CELL DISTRIBUTION WIDTH 20.9 % (11.6-14.6)
[2019-12-13] MEDS ORDERED: AZITHROMYCIN 500 MG in DEXT 5% WATER 250 ML IV SCH (15:00)
[2019-12-13] MEDS ORDERED: CEFTRIAXONE 1 G PREMIX 50 ML IV ONE (15:00)
[2019-12-13] MEDS ORDERED: LORAZEPAM 2MG/ML CPJ IV PRN (15:15)
[2019-12-13] MEDS ORDERED: ONDANSETRON HCL 4MG/2ML INJ IV PRN (15:15)
[2019-12-13] MEDS ORDERED: ACETAMINOPHEN 650MG/20.3ML UDC GT PRN (15:15)
[2019-12-13] MEDS ORDERED: CLONIDINE 0.1MG TABLET PO PRN (15:15)
[2019-12-13] MEDS: PANTOPRAZOLE SODIUM 40 MG/VIAL IV SCH (15:15)
[2019-12-13 15:48] LABS: BG BASE EXCESS 2.6 mmol/L (-2.0-2.0); BG CARBOXYHEMOGLOBIN 0.3 % (0.5-1.5); BG DEOXYHEMOGLOBIN 0.8 % (0.0-5.0); BG FRACTION INSPIRED OXYGEN 50; BG HCO3 ACT 27.7 mmol/L (22.0-26.0); BG METHEMOGLOBIN 0.3 % (0.0-1.5); BG OXYGEN SATURATION 99.2 % (92.0-98.5); BG OXYHEMOGLOBIN 98.6 % (94.0-97.0); BG PCO2 45.3 mmHg (35.0-45.0); BG PH 7.405 (7.350-7.450); BG PO2 189.7 mmHg (75.0-100.0); BG PRESSURE SUPPORT 10; BG SAMPLE SITE RIGHT RADIAL; BG TIDAL VOLUME(mL) 450 mL; BG TOTAL HEMOGLOBIN 10.1 g/dL (12.0-18.0); BG VENT MODE VENT - SIMV; BG VENT RATE 6 set
[2019-12-13] MEDS: DEXT 5%/0.45% NACL 1000ML 1,000 ML IV SCH (16:06)
[2019-12-14 03:55] VITALS: BP 141/83
[2019-12-14 05:00] VITALS: BP 136/81
[2019-12-14 06:29] VITALS: BP 126/73
[2019-12-14 08:00] VITALS: BP 125/82
[2019-12-14] MEDS: PANTOPRAZOLE SODIUM 40 MG/VIAL IV SCH (09:45)
[2019-12-14] MEDS ORDERED: IPRATROPIUM/ALBUTEROL 0.5-3(2.5)MG/3ML NEB HHN PRN (09:45)
[2019-12-14] MEDS: DEXT 5%/0.45% NACL 1000ML 1,000 ML IV SCH (09:46)
[2019-12-14 10:00] VITALS: BP 117/64
[2019-12-14 10:47] LABS: BASOPHILS % 0.9 % (0.0-2.0); EOSINOPHILS % 7.4 % (0.0-5.0); HEMATOCRIT. 23.3 % (36.0-48.0); HEMOGLOBIN. 7.6 g/dL (12.0-16.0); LYMPHOCYTES % 18.7 % (20.0-50.0); MEAN CORPUSCULAR HEMOGLOBIN 29.4 pg (28.0-32.0); MEAN CORPUSCULAR VOLUME 89.8 fL (81.0-99.0); MEAN PLATELET VOLUME 7.5 fl (7.4-10.4); PLATELET 204 x1000/uL (130-400); RED CELL DISTRIBUTION WIDTH 21.3 % (11.6-14.6)
[2019-12-14 11:27] LABS: CHLORIDE 107 mEq/L (98-107)
[2019-12-14] MEDS ORDERED: IPRATROPIUM/ALBUTEROL 0.5-3(2.5)MG/3ML NEB HHN SCH (12:00)
[2019-12-14] MEDS ORDERED: CEFTRIAXONE 1 G PREMIX 50 ML IV SCH ×2 (13:00→15:00)
[2019-12-14] MEDS ORDERED: AZITHROMYCIN 500 MG in DEXT 5% WATER 250 ML IV SCH ×2 (14:00→15:00)
[2019-12-14] MEDS ORDERED: POTASSIUM CHLORIDE INJ 40 MEQ in DEXT 5% WATER 250 ML IV SCH (14:00)
[2019-12-14 16:20] VITALS: BP 127/77
== END 2019-12-14 16:15 | DRG 139 ==
LOC: ER 11:43 → 5EST 15:05 → UNDOADMIN 15:05 → EDBEDREQSVC 16:08 → ENRESERV 21:05 → EDBEDREQSVC 23:56 → EDBEDREQTM 23:56 → CANRESERV 23:59 → ENRESERV 23:59 → EDBEDREQSVC 12-14 02:04 → EDBEDREQTM 12-14 02:04 → EDBEDREQDT 12-14 02:04 → ENRESERV 12-14 02:10 → 5EST 12-14 05:18
PROVIDERS: ADMIT Hospitalist; ATTEND Hospitalist
PROC: 5A1945Z Respiratory Ventilation, 24-96 Consecutive Hours (ICD-10-PCS; principal; 2019-12-13)
PROC: 05HY33Z Insertion of Infusion Device into Upper Vein, Percutaneous Approach (ICD-10-PCS; 2019-12-13)
PROC: B54MZZA Ultrasonography of Right Upper Extremity Veins, Guidance (ICD-10-PCS; 2019-12-13)
DX: J12.9 Viral pneumonia, unspecified (principal); E43 Unspecified severe protein-calorie malnutrition; G82.50 Quadriplegia, unspecified; J96.10 Chronic respiratory failure, unspecified whether with hypoxia or hypercapnia; Z93.0 Tracheostomy status; D69.6 Thrombocytopenia, unspecified; C50.919 Malignant neoplasm of unspecified site of unspecified female breast; Z79.51 Long term (current) use of inhaled steroids; R47.02 Dysphasia; D63.8 Anemia in other chronic diseases classified elsewhere; Z20.828 Contact with and (suspected) exposure to other viral communicable diseases; K21.9 Gastro-esophageal reflux disease without esophagitis; K52.9 Noninfective gastroenteritis and colitis, unspecified; L89.019 Pressure ulcer of right elbow, unspecified stage; R13.10 Dysphagia, unspecified; T88.4XXA Failed or difficult intubation, initial encounter; Y83.8 Other surgical procedures as the cause of abnormal reaction of the patient, or of later complication, without mention of misadventure at the time of the procedure; Y92.89 Other specified places as the place of occurrence of the external cause; Z87.01 Personal history of pneumonia (recurrent); Z85.3 Personal history of malignant neoplasm of breast; Z92.21 Personal history of antineoplastic chemotherapy; Z92.3 Personal history of irradiation; Z93.1 Gastrostomy status; Z79.1 Long term (current) use of non-steroidal anti-inflammatories (NSAID); Z79.899 Other long term (current) drug therapy; Z79.2 Long term (current) use of antibiotics
CPT/HCPCS: 36415; 36600; 71045; 76937; 80053; 82375; 82805; 84134; 85025; 86850; 86900; 93005; 93970; 94003; 94640; 99285; C1725; C9113; J0456; J0696; J3480; J3490; J7060; U0003-CS

== ENCOUNTER 2020-01-09 13:34 | Inpatient (IN) | payer MEDICAID ==
[~2020-01-09] VITALS: Ht 160 cm; Wt 63.5 kg
[2020-01-09 14:40] LABS: BASOPHILS % 0.7 % (0.0-2.0); EOSINOPHILS % 0.6 % (0.0-5.0); HEMATOCRIT. 26.3 % (36.0-48.0); HEMOGLOBIN. 8.6 g/dL (12.0-16.0); MEAN CORPUSCULAR HEMOGLOBIN 29.2 pg (28.0-32.0); MEAN CORPUSCULAR VOLUME 88.8 fL (81.0-99.0); MEAN PLATELET VOLUME 7.6 fl (7.4-10.4); NEUTROPHILS % 71.7 % (40.0-76.0); PLATELET 243 x1000/uL (130-400); RED BLOOD CELL COUNT 2.96 mill/uL (4.2-5.4); RED CELL DISTRIBUTION WIDTH 22.2 % (11.6-14.6)
[2020-01-09 14:44] LABS: CHLORIDE 97 mEq/L (98-107)
[2020-01-09 14:45] LABS: INR 1.1; PROTHROMBIN TIME 11.1 sec (9.6-11.0)
[2020-01-09 14:58] LABS: PLATELET ESTIMATE NORMAL
[2020-01-09 15:17] LABS: CLARITY URINE TURBID (CLEAR); COLOR URINE YELLOW (YELLOW); KETONES URINE NEGATIVE (NEGATIVE); LEUKOCYTE ESTERASE URINE 3+ (NEGATIVE); NITRITE URINE NEGATIVE (NEGATIVE); OCCULT BLOOD URINE NEGATIVE (NEGATIVE); PH URINE 8.5 (4.5-8.0); PROTEIN URINE 1+ (NEGATIVE); SPECIFIC GRAVITY URINE 1.016 (1.005-1.030); UROBILINOGEN URINE 0.2 E.U./dL (0.2-1.0)
[2020-01-09] MEDS ORDERED: CEFTRIAXONE 1 G PREMIX 50 ML IV ONE (17:15)
[2020-01-09] MEDS ORDERED: ONDANSETRON HCL 4MG/2ML INJ IV PRN (19:45)
[2020-01-09] MEDS ORDERED: CLONIDINE 0.1MG TABLET PO PRN (19:45)
[2020-01-09 20:08] LABS: PHOSPHORUS 4.3 mg/dL (2.5-4.9)
[2020-01-09 23:22] LABS: CREATINE KINASE 29 IU/L (26-192)
[2020-01-09 23:23] LABS: CREATINE KINASE MB FRACTION 1.1 ng/mL (0.5-3.6)
[2020-01-10] VITALS (9 sets, daily range): BP systolic 106–142; BP diastolic 70–79
[2020-01-10] MEDS: ACETAMINOPHEN 325MG TABLET PO PRN (01:58)
[2020-01-10] MEDS: DIPHENHYDRAMINE 50MG/ML VIAL IV PRN (01:59)
[2020-01-10 04:59] LABS: BASOPHILS % 0.8 % (0.0-2.0); HEMOGLOBIN. 8.3 g/dL (12.0-16.0); LYMPHOCYTES % 22.5 % (20.0-50.0); MEAN CORPUSCULAR HEMOGLOBIN 29.5 pg (28.0-32.0); MEAN CORPUSCULAR VOLUME 88.9 fL (81.0-99.0); MEAN PLATELET VOLUME 6.9 fl (7.4-10.4); MONOCYTES % 13.5 % (2.0-8.0); NEUTROPHILS % 59.2 % (40.0-76.0); PLATELET 243 x1000/uL (130-400); RED BLOOD CELL COUNT 2.81 mill/uL (4.2-5.4); RED CELL DISTRIBUTION WIDTH 22.1 % (11.6-14.6)
[2020-01-10 05:14] LABS: CHLORIDE 99 mEq/L (98-107)
[2020-01-10 05:24] LABS: CREATINE KINASE 28 IU/L (26-192)
[2020-01-10 05:26] LABS: CREATINE KINASE MB FRACTION 1.3 ng/mL (0.5-3.6); HDL CHOLESTEROL 37 mg/dL (40-59)
[2020-01-10 05:31] LABS: LDL CHOLESTEROL 49 mg/dL (5-100)
[2020-01-10] MEDS ORDERED: DEXTROSE 50% WATER 50ML SYRINGE IV PRN (08:30)
[2020-01-10] MEDS ORDERED: POTASSIUM CHLORIDE 20MEQ TABLET SR PO SCH (11:05)
[2020-01-10] MEDS ORDERED: BLOOD SUGAR DIAGNOSTIC STRIP TEST SCH (11:30)
[2020-01-10] MEDS ORDERED: INSULIN LISPRO 100 UNITS/ML SUBCUT SCH (12:00)
[2020-01-10 12:52] LABS: BG BASE EXCESS 4.5 mmol/L (-2.0-2.0); BG CARBOXYHEMOGLOBIN 0.3 % (0.5-1.5); BG DEOXYHEMOGLOBIN 1.1 % (0.0-5.0); BG FRACTION INSPIRED OXYGEN 35; BG HCO3 ACT 28.1 mmol/L (22.0-26.0); BG METHEMOGLOBIN 0.4 % (0.0-1.5); BG OXYGEN SATURATION 98.9 % (92.0-98.5); BG OXYHEMOGLOBIN 98.2 % (94.0-97.0); BG PCO2 38.3 mmHg (35.0-45.0); BG PH 7.484 (7.350-7.450); BG PO2 141.5 mmHg (75.0-100.0); BG PRESSURE SUPPORT 10; BG SAMPLE SITE RIGHT BRACHIAL; BG TIDAL VOLUME(mL) 550 mL; BG TOTAL HEMOGLOBIN 10.2 g/dL (12.0-18.0); BG VENT MODE VENT - SIMV; BG VENT RATE 6 set
[2020-01-10] MEDS ORDERED: IPRATROPIUM/ALBUTEROL 0.5-3(2.5)MG/3ML NEB HHN PRN (14:00)
[2020-01-10] MEDS: PANTOPRAZOLE SODIUM 40 MG/VIAL IV SCH (15:02)
[2020-01-10] MEDS ORDERED: CEFTRIAXONE 1 G PREMIX 50 ML IV SCH (17:00)
[2020-01-10] MEDS: DIPHENHYDRAMINE 25MG CAPSULE PO PRN (20:19)
[2020-01-10] MEDS: IPRATROPIUM/ALBUTEROL 0.5-3(2.5)MG/3ML NEB HHN SCH (20:49)
[2020-01-11] VITALS (10 sets, daily range): BP systolic 105–132; BP diastolic 44–86
[2020-01-11] MEDS: IPRATROPIUM/ALBUTEROL 0.5-3(2.5)MG/3ML NEB HHN SCH ×4 (02:18→20:23)
[2020-01-11] MEDS: DIPHENHYDRAMINE 50MG/ML VIAL IV PRN ×4 (04:12→21:56)
[2020-01-11] MEDS: PANTOPRAZOLE SODIUM 40 MG/VIAL IV SCH (08:27)
[2020-01-11] MEDS: DIPHENHYDRAMINE 25MG CAPSULE PO PRN ×2 (08:27→15:10)
[2020-01-11] MEDS: CEFTRIAXONE 1 G PREMIX 50 ML IV SCH (15:10)
[2020-01-12] VITALS (12 sets, daily range): BP systolic 105–158; BP diastolic 47–96
[2020-01-12] MEDS: IPRATROPIUM/ALBUTEROL 0.5-3(2.5)MG/3ML NEB HHN SCH ×4 (01:30→13:57)
[2020-01-12] MEDS: DIPHENHYDRAMINE 50MG/ML VIAL IV PRN ×2 (06:34→10:50)
[2020-01-12] MEDS: FAMOTIDINE 20MG/2ML VIAL IV SCH ×2 (10:03→21:49)
[2020-01-12 10:37] LABS: BASOPHILS % 0.2 % (0.0-2.0); EOSINOPHILS % 7.7 % (0.0-5.0); LYMPHOCYTES % 22.4 % (20.0-50.0); MEAN CORPUSCULAR HEMOGLOBIN 29.3 pg (28.0-32.0); MEAN CORPUSCULAR VOLUME 92.3 fL (81.0-99.0); MEAN PLATELET VOLUME 7.7 fl (7.4-10.4); MONOCYTES % 9.9 % (2.0-8.0); NEUTROPHILS % 59.8 % (40.0-76.0); PLATELET 260 x1000/uL (130-400); RED BLOOD CELL COUNT 3.33 mill/uL (4.2-5.4); RED CELL DISTRIBUTION WIDTH 22.3 % (11.6-14.6)
[2020-01-12 10:43] LABS: CHLORIDE 106 mEq/L (98-107)
[2020-01-12 10:59] LABS: HEMOGLOBIN. 9.7 g/dL (12.0-16.0)
[2020-01-12 11:00] LABS: HEMATOCRIT. 30.7 % (36.0-48.0)
[2020-01-12] MEDS: CEFTRIAXONE 1 G PREMIX 50 ML IV SCH (15:13)
[2020-01-12] MEDS: LORAZEPAM 0.5MG TABLET PO PRN ×2 (15:35→21:49)
[2020-01-12] MEDS: DIPHENHYDRAMINE 25MG CAPSULE PO PRN (16:36)
[2020-01-12] MEDS: ACETAMINOPHEN 325MG TABLET PO PRN (21:49)
[2020-01-13] VITALS (12 sets, daily range): BP systolic 89–133; BP diastolic 56–95
[2020-01-13] MEDS: DILTIAZEM HCL 30MG TABLET PO PRN (02:16)
[2020-01-13] MEDS: IPRATROPIUM/ALBUTEROL 0.5-3(2.5)MG/3ML NEB HHN SCH ×3 (07:48→20:38)
[2020-01-13] MEDS: FAMOTIDINE 20MG/2ML VIAL IV SCH ×2 (08:38→22:09)
[2020-01-13 11:18] LABS: BG BASE EXCESS 3.9 mmol/L (-2.0-2.0); BG CARBOXYHEMOGLOBIN 0.2 % (0.5-1.5); BG DEOXYHEMOGLOBIN 1.7 % (0.0-5.0); BG FRACTION INSPIRED OXYGEN 30; BG HCO3 ACT 28.6 mmol/L (22.0-26.0); BG METHEMOGLOBIN 0.2 % (0.0-1.5); BG OXYGEN SATURATION 98.3 % (92.0-98.5); BG OXYHEMOGLOBIN 97.9 % (94.0-97.0); BG PCO2 43.6 mmHg (35.0-45.0); BG PH 7.434 (7.350-7.450); BG PO2 122.8 mmHg (75.0-100.0); BG PRESSURE SUPPORT 8; BG SAMPLE SITE RIGHT RADIAL; BG TOTAL HEMOGLOBIN 10.1 g/dL (12.0-18.0); BG VENT MODE VENT - CPAP
[2020-01-13] MEDS ORDERED: IOHEXOL-300 100 ML BOTTLE ONE (14:18)
[2020-01-13] MEDS: CEFTRIAXONE 1 G PREMIX 50 ML IV SCH (16:58)
[2020-01-14] VITALS (13 sets, daily range): BP systolic 97–154; BP diastolic 58–123
[2020-01-14] MEDS: DILTIAZEM HCL 30MG TABLET PO PRN ×2 (00:38→11:16)
[2020-01-14] MEDS: LORAZEPAM 0.5MG TABLET PO PRN ×2 (00:39→16:12)
[2020-01-14] MEDS: ACETAMINOPHEN 325MG TABLET PO PRN ×3 (01:13→20:35)
[2020-01-14] MEDS: IPRATROPIUM/ALBUTEROL 0.5-3(2.5)MG/3ML NEB HHN SCH ×5 (01:55→22:24)
[2020-01-14 06:10] LABS: BASOPHILS % 0.9 % (0.0-2.0); EOSINOPHILS % 3.8 % (0.0-5.0); HEMATOCRIT. 31.2 % (36.0-48.0); HEMOGLOBIN. 10.1 g/dL (12.0-16.0); MEAN CORPUSCULAR HEMOGLOBIN 29.7 pg (28.0-32.0); MEAN CORPUSCULAR VOLUME 92.3 fL (81.0-99.0); MEAN PLATELET VOLUME 7.8 fl (7.4-10.4); MONOCYTES % 8.2 % (2.0-8.0); NEUTROPHILS % 61.1 % (40.0-76.0); PLATELET 287 x1000/uL (130-400); RED BLOOD CELL COUNT 3.38 mill/uL (4.2-5.4); RED CELL DISTRIBUTION WIDTH 22.5 % (11.6-14.6)
[2020-01-14 06:35] LABS: CHLORIDE 111 mEq/L (98-107)
[2020-01-14] MEDS: DIPHENHYDRAMINE 50MG/ML VIAL IV PRN ×2 (09:33→16:12)
[2020-01-14] MEDS: FAMOTIDINE 20MG/2ML VIAL IV SCH ×2 (09:33→20:36)
[2020-01-14] MEDS: NEOMY SULF/BACITRAC ZN/POLY OINT 28GM TOP SCH (12:00)
[2020-01-14] MEDS: NITROFURANTOIN 100MG M/M CAPSULE PO SCH ×2 (13:35→20:35)
[2020-01-14] MEDS: CEFTRIAXONE 1 G PREMIX 50 ML IV SCH (15:57)
[2020-01-14] MEDS: MEROPENEM 500 MG in SODIUM CHLORIDE 0.9% 50 ML IV SCH (23:36)
[2020-01-15] VITALS (12 sets, daily range): BP systolic 110–146; BP diastolic 55–93
[2020-01-15] MEDS: IPRATROPIUM/ALBUTEROL 0.5-3(2.5)MG/3ML NEB HHN SCH ×4 (03:41→21:14)
[2020-01-15 06:39] LABS: CHLORIDE 114 mEq/L (98-107)
[2020-01-15 06:41] LABS: BASOPHILS % 0.9 % (0.0-2.0); HEMATOCRIT. 27.8 % (36.0-48.0); HEMOGLOBIN. 8.7 g/dL (12.0-16.0); LYMPHOCYTES % 16.2 % (20.0-50.0); MEAN CORPUSCULAR HEMOGLOBIN 28.9 pg (28.0-32.0); MEAN CORPUSCULAR VOLUME 91.7 fL (81.0-99.0); MEAN PLATELET VOLUME 7.7 fl (7.4-10.4); MONOCYTES % 6.9 % (2.0-8.0); PLATELET 249 x1000/uL (130-400); RED BLOOD CELL COUNT 3.03 mill/uL (4.2-5.4); RED CELL DISTRIBUTION WIDTH 21.8 % (11.6-14.6)
[2020-01-15] MEDS: FAMOTIDINE 20MG/2ML VIAL IV SCH ×2 (08:28→21:11)
[2020-01-15] MEDS: MEROPENEM 500 MG in SODIUM CHLORIDE 0.9% 50 ML IV SCH ×3 (08:28→23:58)
[2020-01-15] MEDS: NEOMY SULF/BACITRAC ZN/POLY OINT 28GM TOP SCH (08:36)
[2020-01-15] MEDS: DILTIAZEM HCL 30MG TABLET PO PRN ×3 (08:51→21:11)
[2020-01-15] MEDS: LORAZEPAM 0.5MG TABLET PO PRN ×2 (09:16→21:11)
[2020-01-15] MEDS ORDERED: POTASSIUM CHLORIDE 20MEQ TABLET SR PO NR (09:30)
[2020-01-15] MEDS ORDERED: FAMO20TA8 MT (12:22)
[2020-01-15] MEDS ORDERED: CEFTRIAXONE 1,000 MG in DEXTROSE 5% WATER 50 ML IV SCH (14:00)
[2020-01-15 15:14] LABS: CLARITY URINE CLEAR (CLEAR); COLOR URINE DARK YELLOW (YELLOW); KETONES URINE TRACE (NEGATIVE); LEUKOCYTE ESTERASE URINE 1+ (NEGATIVE); NITRITE URINE NEGATIVE (NEGATIVE); OCCULT BLOOD URINE NEGATIVE (NEGATIVE); PH URINE >=9.0 (4.5-8.0); PROTEIN URINE 2+ (NEGATIVE); UROBILINOGEN URINE 0.2 E.U./dL (0.2-1.0)
[2020-01-15] MEDS: DIPHENHYDRAMINE 25MG CAPSULE PO PRN (18:51)
[2020-01-16] VITALS (11 sets, daily range): BP systolic 85–142; BP diastolic 49–79
[2020-01-16] MEDS: IPRATROPIUM/ALBUTEROL 0.5-3(2.5)MG/3ML NEB HHN SCH ×4 (02:01→20:17)
[2020-01-16] MEDS: MEROPENEM 500 MG in SODIUM CHLORIDE 0.9% 50 ML IV SCH ×3 (08:09→23:41)
[2020-01-16] MEDS: FAMOTIDINE 20MG/2ML VIAL IV SCH ×2 (08:10→22:22)
[2020-01-16] MEDS: NEOMY SULF/BACITRAC ZN/POLY OINT 28GM TOP SCH (08:10)
[2020-01-16] MEDS: DILTIAZEM HCL 30MG TABLET PO PRN ×2 (14:47→22:46)
[2020-01-16] MEDS: LORAZEPAM 0.5MG TABLET PO PRN (18:57)
[2020-01-16] MEDS: DIPHENHYDRAMINE 50MG/ML VIAL IV PRN (22:44)
[2020-01-17] VITALS (13 sets, daily range): BP systolic 106–145; BP diastolic 54–78
[2020-01-17] MEDS: IPRATROPIUM/ALBUTEROL 0.5-3(2.5)MG/3ML NEB HHN SCH ×3 (00:30→14:29)
[2020-01-17] MEDS: DIPHENHYDRAMINE 50MG/ML VIAL IV PRN ×2 (06:41→17:15)
[2020-01-17] MEDS: DILTIAZEM HCL 30MG TABLET PO PRN (06:42)
[2020-01-17] MEDS: MEROPENEM 500 MG in SODIUM CHLORIDE 0.9% 50 ML IV SCH ×2 (08:32→15:54)
[2020-01-17] MEDS: FAMOTIDINE 20MG/2ML VIAL IV SCH (08:32)
[2020-01-17] MEDS: LORAZEPAM 0.5MG TABLET PO PRN (08:32)
[2020-01-17] MEDS: NEOMY SULF/BACITRAC ZN/POLY OINT 28GM TOP SCH (08:34)
[2020-01-17] MEDS ORDERED: METOPROLOL TARTRATE 25MG TABLET PO SCH ×2 (13:30→21:00)
[2020-01-17] MEDS ORDERED: ACETYLCYSTEINE 100MG/ML 10% VIAL 4ML INH SCH (22:00)
== END 2020-01-17 17:20 | DRG 720 ==
LOC: ER 13:38 → MICUSO 18:05 → EDBEDREQ 18:08 → EDBEDREQTM 18:08 → 5EST 01-10 08:31
PROVIDERS: ADMIT Internal Medicine; ATTEND Internal Medicine
PROC: 5A1955Z Respiratory Ventilation, Greater than 96 Consecutive Hours (ICD-10-PCS; principal; 2020-01-09)
PROC: 02H633Z Insertion of Infusion Device into Right Atrium, Percutaneous Approach (ICD-10-PCS; 2020-01-15)
PROC: B548ZZA Ultrasonography of Superior Vena Cava, Guidance (ICD-10-PCS; 2020-01-15)
DX: A41.51 Sepsis due to Escherichia coli [E. coli] (principal); E43 Unspecified severe protein-calorie malnutrition; N39.0 Urinary tract infection, site not specified; G82.50 Quadriplegia, unspecified; E87.1 Hypo-osmolality and hyponatremia; D64.9 Anemia, unspecified; E87.8 Other disorders of electrolyte and fluid balance, not elsewhere classified; J96.20 Acute and chronic respiratory failure, unspecified whether with hypoxia or hypercapnia; L89.626 Pressure-induced deep tissue damage of left heel; L89.616 Pressure-induced deep tissue damage of right heel; K21.9 Gastro-esophageal reflux disease without esophagitis; E11.9 Type 2 diabetes mellitus without complications; R13.10 Dysphagia, unspecified; R47.02 Dysphasia; K52.9 Noninfective gastroenteritis and colitis, unspecified; R16.2 Hepatomegaly with splenomegaly, not elsewhere classified; R47.1 Dysarthria and anarthria; L60.0 Ingrowing nail; R22.1 Localized swelling, mass and lump, neck; J18.9 Pneumonia, unspecified organism; F41.9 Anxiety disorder, unspecified; K76.0 Fatty (change of) liver, not elsewhere classified; A41.59 Other Gram-negative sepsis; I26.99 Other pulmonary embolism without acute cor pulmonale; Z16.12 Extended spectrum beta lactamase (ESBL) resistance; L80 Vitiligo; L89.153 Pressure ulcer of sacral region, stage 3; L89.892 Pressure ulcer of other site, stage 2; R74.0 Nonspecific elevation of levels of transaminase and lactic acid dehydrogenase [LDH]; I10 Essential (primary) hypertension; G93.40 Encephalopathy, unspecified; Z92.21 Personal history of antineoplastic chemotherapy; Z85.3 Personal history of malignant neoplasm of breast; Z90.49 Acquired absence of other specified parts of digestive tract; Z87.01 Personal history of pneumonia (recurrent); Z93.1 Gastrostomy status; Z68.24 Body mass index [BMI] 24.0-24.9, adult; Z93.0 Tracheostomy status; Z74.01 Bed confinement status
CPT/HCPCS: 36415; 36600; 71045; 74176; 76700; 76937; 80048; 80053; 80061; 81003; 82040; 82140; 82375; 82550; 82553; 82805; 82962; 83605; 83735; 83880; 84100; 84134; 84145; 84484; 85025; 85379; 87077; 87186; 93005; 93970; 94002; 94003; 94640; 97162; 97166; 99285; C1725; C9113; J0696; J1200; J2185; J2405; J3490; J7060; Q0163; Q9967